=== PATIENT | female | born 1955 | race Caucasian/White ===

== ENCOUNTER → 2017-05-30 | Outpatient (CLI) | payer BC ==
--- NOTE | 2017-06-02 10:03 | Diagnostic Imaging Report ---
EXAMINATION: Bilateral screening mammogram with a Computer Aided Detection (CAD) system. INDICATION: Screening. PERSONAL HISTORY: No current complaints stated on the questionnaire. COMPARISON: 03/16/2015. FINDINGS: The breasts are composed of heterogeneously dense parenchyma which may decrease mammographic sensitivity. Benign-appearing calcifications are seen. Allowing for technique and positional differences, no suspicious change is seen. IMPRESSION: Dense breasts with no definite change. ACR BI-RADS Category 2: Benign findings. Result letter will be mailed to the patient. Note: At least 10% of breast cancer is not imaged by mammography. Dictated by: Dictated on workstation # [id number]
== END ==
LOC: RAD 13:15
PROVIDERS: ATTEND Obstetrics & Gynecology
DX: Z12.31 Encounter for screening mammogram for malignant neoplasm of breast (principal)
CPT/HCPCS: 77067

== ENCOUNTER 2019-06-11 22:58 | Emergency (ER) | payer MEDICARE, BC ==
[~2019-06-11] VITALS: Ht 162.6 cm; Wt 45.4 kg
--- OUTSIDE RECORDS SUMMARY | 2019-06-11 23:03 | XMS REPORT | Encounter Summary ---
Author Author [facility] Organization [facility] Address Unknown Phone Unavailable Care Team Providers Care Yeast Stacker Name Role Phone Crystal Ellington MD PCP Reason for Visit * Reason Comments Hospice follow up Encounter Details Care Team Description Date Type Department Ziggy Brennan MD [address] [place] [address] Hospice (follow up) 12/23/2018 Telephone [facility] [address] [place] [address] Social History Date Tobacco Use Types Packs/Day Years Used Started: 04/08/1988 Current Every Day Smoker Smokeless Tobacco: Never Used Drinks/Week oz/Week Comments Alcohol Use No Sex Assigned at Date Recorded Not on file Industry Job Start Date Occupation Not on file Not on file Not on file Travel End Travel History Travel Start No recent travel history available. documented as of this encounter Miscellaneous Notes * Telephone Encounter - Anastasia Johns RN - 12/23/2018 2:08 PM RAHUL Madden called, she has [facility] in [facility] home for her AND her . Wanted to make sure it was ok that she didn't come to clinic because she is so far away and it is difficult to get a ride. I advised that they can call any shayy e to ask questions or anything they need, will continue to sign her or ders. She stated understanding and will let them know. She also called to cancel her appt for Thursday 12/28. PRICKER documented in this encounter Plan of Treatment Not on filedocumented as of this encounter Visit Diagnoses Not on filedocumented in this encounter
--- OUTSIDE RECORDS SUMMARY | 2019-06-11 23:03 | XMS REPORT | Continuity of Care Document ---
Author Organization Unknown Address Unknown Allergies Active Description Code Type Severity Reaction Onset Reported/Identified Relationship to Patient Clinical Status Yes NO KNOWN DRUG ALLERGIES UNKNOWN NO KNOWN DRUG ALLERG Medications There is no data. Problems Date Dx Coded Attending Type Code Diagnosis Diagnosed By 04/21/2015 VINCE HEIN DO Ot 305.1 04/21/2015 VINCE HEIN DO Ot 627.2 04/21/2015 JENNIFER HEIN DOA C Ot 733.00 04/21/2015 MELVINA NAYLOR VINCE C Ot 793.82 04/21/2015 MELVINA NAYLOR VINCE C Ot V70.0 04/21/2015 MELVINA NAYLOR VINCE C Ot V76.12 06/13/2017 MELVINA NAYLOR VINCE C Ot Z12.31 ENCNTR SCREEN MAMMOGRAM FOR MALIGNANT NE 01/07/2018 KOKO MCINTYRE A 724.4 THORACIC OR LUMBOSACRAL NEURITIS OR RADICULITIS, UNSPECIFIED 01/07/2018 KOKO MCINTYRE W 736.79 OTHER ACQUIRED DEFORMITIES OF ANKLE AND FOOT 01/07/2018 KOKO MCINTYRE M21.372 FOOT DROP, LEFT FOOT 01/07/2018 KOKO MCINTYRE A M54.16 RADICULOPATHY, LUMBAR REGION 01/07/2018 KOKO MCINTYRE A 724.4 THORACIC OR LUMBOSACRAL NEURITIS OR RADICULITIS, UNSPECIFIED 01/07/2018 KOKO MCINTYRE W 736.79 OTHER ACQUIRED DEFORMITIES OF ANKLE AND FOOT 01/07/2018 KOKO MCINTYRE M21.372 FOOT DROP, LEFT FOOT 01/07/2018 KOKO MCINTYRE A M54.16 RADICULOPATHY, LUMBAR REGION 01/16/2018 Ot V76.12 OT SCREEN MAMMO- MALIGN NEOPLASM OF MICHAEL 01/16/2018 VINCE HEIN DO Ot 305.1 TOBACCO USE DISORDER 01/16/2018 HEIN DO, VINCE C Ot 627.2 SYMPT MENOPAUSE OR FEMALE CLIMACTERIC ST 01/16/2018 HEIN DO, VINCE C Ot 733.00 OSTEOPOROSIS NOS 01/16/2018 HEIN DO, VINCE C Ot 793.82 INCONCLUSIVE MAMMOGRAM 01/16/2018 HEIN DO, VINCE C Ot V70.0 ROUTINE MEDICAL EXAM 01/16/2018 HEIN DO, VINCE C Ot V76.12 OTH SCREEN MAMMO-MALIGN NEOPLASM OF MICHAEL 01/16/2018 HEIN DO, VINCE C Ot Z12.31 ENCNTR SCREEN MAMMOGRAM FOR MALIGNANT NE 01/19/2018 Ot V76.12 OTH SCREEN MAMMO- MALIGN NEOPLASM OF MICHAEL 01/19/2018 HEIN DO, VINCE C Ot 305.1 TOBACCO USE DISORDER 01/19/2018 HEIN DO, VINCE C Ot 627.2 SYMPT MENOPAUSE OR FEMALE CLIMACTERIC ST 01/19/2018 HEIN DO, VINCE C Ot 733.00 OSTEOPOROSIS NOS 01/19/2018 HEIN DO, VINCE C Ot 793.82 INCONCLUSIVE MAMMOGRAM 01/19/2018 HEIN DO, VINCE C Ot V70.0 ROUTINE MEDICAL EXAM 01/19/2018 HEIN DO, VINCE C Ot V76.12 OTH SCREEN MAMMO-MALIGN NEOPLASM OF MICHAEL 01/19/2018 HEIN DO, VINCE C Ot Z12.31 ENCNTR SCREEN MAMMOGRAM FOR MALIGNANT NE 01/30/2018 Ot V76.12 OTH SCREEN MAMMO- MALIGN NEOPLASM OF MICHAEL 01/30/2018 HEIN DO, VINCE C Ot 305.1 TOBACCO USE DISORDER 01/30/2018 HEIN DO, VINCE C Ot 627.2 SYMPT MENOPAUSE OR FEMALE CLIMACTERIC ST 01/30/2018 HEIN DO, VINCE C Ot 733.00 OSTEOPOROSIS NOS 01/30/2018 HEIN DO, VINCE C Ot 793.82 INCONCLUSIVE MAMMOGRAM 01/30/2018 HEIN DO, VINCE C Ot V70.0 ROUTINE MEDICAL EXAM 01/30/2018 HEIN DO, VINCE C Ot V76.12 OTH SCREEN MAMMO-MALIGN NEOPLASM OF MICHAEL 01/30/2018 HEIN DO, VINCE C Ot Z12.31 ENCNTR SCREEN MAMMOGRAM FOR MALIGNANT NE 06/14/2018 KOKO MCINTYRE 335.20 AMYOTROPHIC LATERAL SCLEROSIS 06/14/2018 KOKO MCINTYRE 728.87 MUSCLE WEAKNESS (GENERALIZED) 06/14/2018 KOKO MCINTYRE G12.21 AMYOTROPHIC LATERAL SCLEROSIS 06/14/2018 KOKO MCINTYRE M62.81 MUSCLE WEAKNESS (GENERALIZED) 06/19/2018 KOKO MCINTYRE 335.20 AMYOTROPHIC LATERAL SCLEROSIS 06/19/2018 KOKO MCINTYRE G12.21 AMYOTROPHIC LATERAL SCLEROSIS 06/24/2018 KOKO MCINTYRE 335.20 AMYOTROPHIC LATERAL SCLEROSIS 06/24/2018 KOKO MCINTYRE G12.21 AMYOTROPHIC LATERAL SCLEROSIS 08/10/2018 KOKO MCINTYRE 335.20 AMYOTROPHIC LATERAL SCLEROSIS 08/10/2018 KOKO MCINTYRE G12.21 AMYOTROPHIC LATERAL SCLEROSIS Procedures There is no data. Results Test Result Range Lipid Panel - 03/21/17 10:41 C/HDL 3.8 3.7-6.7 Cholesterol 259 mg/dL 100-240 HDL 69 mg/dL 30-85 LDL-Calculated 167 mg/dL 0-100 Trig 113 mg/dL 35-160 VLDL 23 mg/dL 0-42 Creatinine - 01/19/18 13:17 Creat 0.70 mg/dL 0.50-1.50 eGFR 84 mL/min/1.73m2 >59 Protein Electro.,S - 03/12/18 13:33 Protein, Total, Serum 6.2 g/dL 6.0-8.5 Albumin 3.6 g/dL 2.9-4.4 Wphtg-8-Qauzzuil 0.2 g/dL 0.0-0.4 Qauvd-0-Xiextkel 0.7 g/dL 0.4-1.0 Beta Globulin 0.9 g/dL 0.7-1.3 Gamma Globulin 0.8 g/dL 0.4-1.8 M-Gerard Not Observed g/dL Not Observed Globulin, Total 2.6 g/dL 2.2-3.9 A/G Ratio 1.4 0.7-1.7 Please note: Comment Protein Electro, Random Urine - 03/12/18 13:33 Protein,Total,Urine 24.6 mg/dL Not Estab. Please note: Comment Albumin, U 41.2 % Mwthp-7-Kaykamxm, U 6.8 % Jnduz-2-Rlmuaeal, U 13.0 % Beta Globulin, U 23.3 % Gamma Globulin, U 15.7 % M-Gerard, % Not Observed % Not Observed RPR - 03/12/18 13:33 RPR Non Reactive Non Reactive T4 - 03/12/18 13:33 T4 7.8 ug/dL 4.5-12.5 VIT B-12 - 03/12/18 13:33 Vitamin B12 377.00 pg/mL 213.00-816.00 LEANNA w/Reflex - 03/12/18 13:33 LEANNA DIRECT Negative Negative Rapid Plasma Reagin (RPR), Qualitative Test - 03/12/18 13:33 RPR Non Reactive Non Reactive Protein Electro, Random Urine - 03/12/18 13:33 PROTEIN,TOTAL,URINE 24.6 mg/dL Not Estab. ALBUMIN, U 41.2 % WGGLT-5-IDLZBAJF, U 6.8 % HFPOX-7-IRROKVXF, U 13.0 % BETA GLOBULIN, U 23.3 % GAMMA GLOBULIN, U 15.7 % PLEASE NOTE: Protein electrophoresis scan will follow via computer, mail, or.brcourier delivery. M-SPIKE, % Not Observed % Not Observed LEANNA w/Reflex - 03/12/18 13:33 LEANNA Direct Negative Negative Heavy Metals Profile II, Urine - 03/16/18 10:33 ARSENIC (TOTAL),U NONE DETECTED UG/L 0-50 ARSENIC(INORGANIC),U NONE DETECTED UG/L 0-19 CREATININE(PARTITION ASSEMBLY MACHINE OPERATOR),U 0.36 G/L 0.30-3.00 LEAD, URINE NONE DETECTED UG/L 0-49 MERCURY, URINE NONE DETECTED UG/L 0-19 CADMIUM, URINE NONE DETECTED UG/L NONE DETECTED Heavy Metals Profile II, Urine - 03/16/18 10:33 Creatinine(Physical Therapy Aides Teacher),U 0.36 g/L 0.30-3.00 Arsenic (Total),U None Detected ug/L 0-50 Arsenic(Inorganic),U None Detected ug/L 0-19 Lead, Urine None Detected ug/L 0-49 Mercury, Urine None Detected ug/L 0-19 Cadmium, Urine None Detected ug/L None detected Encounters ACCT No. Visit Date/Time Discharge Status Pt. Type Provider Facility Loc./Unit Complaint [id number] 05/30/2017 13:15:00 05/30/2017 23:59:59 CLS Outpatient VINCE HEIN DO Via [facility] SCREENING [id number] 03/16/2015 09:22:00 03/16/2015 23:59:59 CLS Outpatient MELVINA NAYLOR VINCE Westley [facility] RAD SCREENING, MENOPAUSE, TOBACCO USE [id number] 02/08/2013 13:56:00 Document Registration [id number] 03/13/2018 16:29:00 Document Registration [id number] 06/15/2018 13:40:00 08/10/2018 14:45:00 DIS Outpatient KOKO MCINTYRE [id number] 06/05/2018 00:00:00 06/14/2018 12:43:00 DIS Outpatient KOKO MCINTYRE [id number] 03/16/2018 10:29:00 03/16/2018 23:59:00 DIS Outpatient CARLOS ARMSTRONG [id number] 03/12/2018 13:26:00 03/12/2018 23:59:00 DIS Outpatient KOKO MCINTYRE [id number] 01/21/2018 00:00:00 01/21/2018 23:59:00 DIS Outpatient CAROLA CHIRINOS [id number] 01/19/2018 13:12:00 01/19/2018 23:59:00 DIS Outpatient CAROLA CHIRINOS [id number] 01/07/2018 00:00:00 01/07/2018 23:59:00 DIS Outpatient KOKO MCINTYRE [id number] 03/21/2017 14:03:00 03/21/2017 23:59:00 DIS Outpatient Mira Canas [id number] 03/18/2018 16:29:00 Document Registration [id number] 03/17/2015 04:27:03 ACT Document Registration [id number] 11/26/2017 16:45:00 11/26/2017 23:59:59 CLS Outpatient LONDON SARAH MIRELA [facility] [id number] 03/13/2018 12:21:00 Document Registration
--- OUTSIDE RECORDS SUMMARY | 2019-06-11 23:03 | XMS REPORT ---
Author Author ALISA LUNDBERG [facility] Address [address] [place] [address] Care Team Providers Care Lab Assistant Name Role Phone ALISA LUNDBERG Unavailable PROBLEMS Unknown Problems ALLERGIES No Known Allergies SOCIAL HISTORY Never Assessed PLAN OF CARE VITAL SIGNS Height 64.5 in 2017-02-19 Weight 111.6 lbs 2017-02-19 Temperature 98.0 degrees Fahrenheit 2017-02-19 Heart Rate 72 bpm 2017-02-19 Respiratory Rate 18 2017-02-19 BMI 18.86 kg/m2 2017-02-19 Blood pressure systolic 110 mmHg 2017-02-19 Blood pressure diastolic 66 mmHg 2017-02-19 MEDICATIONS Medication Instructions Dosage Frequency Start Date End Date Duration Status Ambien 5 MG Orally Once a day 1 tablet at bedtime 24h Active Gentamicin Sulfate 0.3 % Ophthalmic every 4 hrs 1 drop into affected eye 4h Jan, 07 days Active RESULTS No Results PROCEDURES No Known procedures IMMUNIZATIONS No Known Immunizations MEDICAL (GENERAL) HISTORY Type Description Date Medical History osteoporosis Surgical History hysterectomy Surgical History EGD Surgical History tonsillectomy Hospitalization History surgeries
--- OUTSIDE RECORDS SUMMARY | 2019-06-11 23:03 | XMS REPORT | Clinical Summary ---
Author Author [facility] Organization [facility] Address Unknown Phone Unavailable Care Team Providers Care Director Health Name Role Phone Crystal Ellington MD PCP Source Comments Some departments are not documenting in the electronic medical record. If you d o not see the information that you expected, contact Release of Information in [facility] [place] Information Management department at [phone] for further assistan ce in locating additional records.[facility] Allergies No Known Allergies Medications End Date Status Medication Sig Dispensed Refills Start Date Active zolpidem (AMBIEN) 5 mg Take 1 tablet 0 tablet by mouth at bedtime daily. Active Vitamin A 25,000 unit Take 1 90 capsule 6 capIndications: ALS capsule by 8 (amyotrophic lateral mouth daily. sclerosis) ([facility]) Active ascorbic acid(+) (VITAMIN Take 1 tablet 90 tablet 6 C) 1,000 mg by mouth 8 tabletIndications: ALS three times (amyotrophic lateral daily. sclerosis) ([facility]) Active vitamin E 400 unit Take 1 30 capsule 6 capsuleIndications: ALS capsule by 8 (amyotrophic lateral mouth daily. sclerosis) ([facility]) Active walker medical supply Use as 1 Device 0 directed. 8 PLEASE PROVIDE ROLLATOR WALKER DX ALS Active edaravone (RADICAVA) IVPB Administer 2000 mL 11 200 mL 8 through vein daily. Active riluzole(+) (RILUTEK) 50 Take one 180 tablet 3 mg tabletIndications: tablet by 8 amyotrophic lateral mouth twice sclerosis daily before meals. Active Problems Problem Noted Date ALS, limb onset Aug 2017, diagnosed March 2018 (amyotrophic lateral 04/08/2018 sclerosis) Family History Medical History Relation Name Comments Heart problem Father Cancer Mother Stroke Mother Migraines Sister Relation Name Status Comments Father Mother breast Sister Social History Date Tobacco Use Types Packs/Day Years Used Started: 04/08/1988 Current Every Day Smoker Smokeless Tobacco: Never Used Drinks/Week oz/Week Comments Alcohol Use No Sex Assigned at Date Recorded Not on file Industry Job Start Date Occupation Not on file Not on file Not on file Travel End Travel History Travel Start No recent travel history available. Last Filed Vital Signs Reading Time Taken Comments Vital Sign 139/80 08/31/2018 8:45 AM CDT Blood Pressure 81 08/31/2018 8:45 AM CDT Pulse - - Temperature 16 05/18/2018 8:15 AM CDT Respiratory Rate - - Oxygen Saturation - - Inhaled Oxygen Concentration 49 kg (108 lb) 08/31/2018 8:45 AM CDT Weight 163.8 cm (5' 4.5") 08/31/2018 8:45 AM CDT Height 18.25 08/31/2018 8:45 AM CDT Body Mass Index Plan of Treatment Health Maintenance Due Date Last Done Comments HEPATITIS C SCREENING 1954 PHYSICAL (COMPREHENSIVE) 1961 EXAM HIV SCREENING 1969 DTAP/TDAP VACCINES (1 - 1972 Tdap) CERVICAL CANCER SCREENING 1984 BREAST CANCER SCREENING 1994 COLORECTAL CANCER 2004 SCREENING SHINGLES RECOMBINANT 2004 VACCINE (1 of 2) INFLUENZA VACCINE 08/31/2019 08/27/2012, 07/26/2011, 10/07/2008, Additional history exists Results Not on filefrom Last 3 Months Insurance Type Payer Benefit Subscriber ID Effective Phone Address Plan / Dates Group PPO BCBS [facility] xxxxxxxxxxxx [id number] PREF CARE resent BLUE Advance Directives Patient Receiving Dock Checker Explanation Type Date Recorded Advance Directive/DPOA
--- OUTSIDE RECORDS SUMMARY | 2019-06-11 23:03 | XMS REPORT | Encounter Summary ---
Author Author [facility] Organization [facility] Address Unknown Phone Unavailable Care Team Providers Care Hand Flatwork Finisher Name Role Phone Crystal Ellington MD PCP Reason for Visit * Reason Comments Medication Question Vit A/C/E Encounter Details Care Team Description Date Type Department Ziggy Brennan MD [address] [place] [address] Medication Question (Vit A/C/E) 01/20/2019 Telephone [facility] [address] [place] [address] Social History Date Tobacco Use [...] Telephone Encounter - Anastasia Johns RN - 01/20/2019 9:16 AM NETWORK CONTRACTOR Robb maier, hospice nurse Liana Lilly- megavitamin doses, a and e,c. Should she continue taking these or not? [phone] I called [facility] back and advised that we recommend she take the Amara mins A/C/E but ultimately it is up to the patient. ORK CONTRACTOR documented in this encounter Plan of Treatment Not on filedocumented as of this encounter Visit Diagnoses Not on filedocumented in this encounter
--- OUTSIDE RECORDS SUMMARY | 2019-06-11 23:03 | XMS REPORT ---
Author Author ALISA LUNDBERG Organization [facility] Address [address] [place] [address] Care Team Providers Care Lieutenant Shift Supervisor Name Role Phone ALISA LUNDBERG Unavailable PROBLEMS Unknown Problems ALLERGIES No Known Allergies ENCOUNTERS Encounter Location Date Diagnosis [facility] [address] [place] [id number] Oct, Other viral agents as the cause of diseases classified elsewhere B97.89 and Acute upper respiratory infection, unspecified J06.9 [facility] [address] [address] Jan, Acute bacterial conjunctivitis of right eye H10.31 [facility] [address] [address] March, Other acute sinusitis J01.80 IMMUNIZATIONS No Known Immunizations SOCIAL HISTORY Never Assessed REASON FOR VISIT cough/congestion Pt states she started with a cough and congestion on and it just continues to get worse. She reports she has coughed so much her ribs are sore. TIAGO Yost PLAN OF CARE VITAL SIGNS Height 64.5 in 2017-11-26 Weight 106.8 lbs 2017-11-26 Temperature 99.7 degrees Fahrenheit 2017-11-26 Heart Rate 100 bpm 2017-11-26 Respiratory Rate 22 2017-11-26 BMI 18.05 kg/m2 2017-11-26 Blood pressure systolic 118 mmHg 2017-11-26 Blood pressure diastolic 66 mmHg 2017-11-26 MEDICATIONS Medication Instructions Dosage Frequency Start Date End Date Duration Status Fosamax 70 MG 1 tablet Not-Taking Mucinex 600 MG Orally every 12 hrs 2 tablet as needed 12h Not-Taking Osphena 60 MG Orally Once a day 1 tablet with food 24h Not-Taking Gentamicin Sulfate 0.3 % Ophthalmic every 4 hrs 1 drop into affected eye 4h Jan, 07 days Not-Taking Promethazine-Codeine 6.25-10 MG/5ML Orally every 6 hrs 5 ml as needed 6h Oct, Active PredniSONE 20 MG Orally Once a day 1 tablet 24h Oct, Dec, 30 day(s) Active Doxycycline Hyclate 100 MG Orally every 12 hrs 1 capsule 12h Active Ambien 5 MG Orally Once a day 1 tablet at bedtime 24h Not-Taking RESULTS No Results PROCEDURES No Known procedures INSTRUCTIONS MEDICATIONS ADMINISTERED No Known Medications MEDICAL (GENERAL) HISTORY Type Description Date Medical History osteoporosis Surgical History hysterectomy Surgical History EGD Surgical History tonsillectomy Hospitalization History surgeries
[2019-06-11] MEDS ORDERED: ZOLP5TAB7 (23:10)
[2019-06-11] MEDS ORDERED: RILU50TA (23:10)
--- NOTE | 2019-06-11 23:13 | ED Fall/Injury ---
General Stated Complaint: FALL Source: patient, family (daughter) Exam Limitations: no limitations History of Present Illness Date Seen by Provider: Jun 11, 2019 Time Seen by Provider: 22:57 Initial Comments The patient presents to the ER by private conveyance with her daughter and chief complaint that about 2 hours prior to arrival she was using her walker in the bathroom to brush her teeth and her daughter was standing behind her. As they were walking back to the red room she said her legs buckled underneath her and she fell down landing on her right knee and having some swelling and pain in her left foot. She did take 800 mg of ibuprofen about an hour ago. She says long she lay still the pain is not bad. She does have decreased sensation and movement in her lower extremity secondary to ALS for which she is on hospice. She is known to Dr. Crystal Frank, Dr. Brennan at [facility]. She denies striking her head nor loss of consciousness. She denies nausea sweats fevers chills dysuria cough shortness of breath. Her last fall was about a month ago similar her left leg locked up and she felt her knees. No injury that time. No previous injury to her right knee her left foot Allergies and Home Medications Allergies Coded Allergies: No Known Drug Allergies (Unverified , 06/11/19) Patient Home Medication List Home Medication List Reviewed: Yes Review of Systems Review of Systems Constitutional: No chills, No diaphoresis Eyes: Denies Blindness, Denies Blurred Vision Ears, Nose, Mouth, Throat: denies ear pain, denies ear discharge Cardiovascular: No edema, No Hx of Intervention Gastrointestinal: No abdominal pain, No constipation Genitourinary: No discharge, No dysuria Past Pxkhwpz-Uxpfjx-Ohzpqo Hx Patient Social History Alcohol Use: Past History (last used 30 years ago) Recreational Drug Use: No Drug of Choice: Hx MJ 30 years ago Smoking Status: Current Everyday Smoker Type Used: Cigarettes (1/2 ppd) Recent Foreign Travel: No Contact w/Someone Who Travel: No Physical Exam Vital Signs Vital Signs - First Documented 06/11/19 23:01 Temp 98.4 Pulse 121 Resp 18 B/P (MAP) 131/97 (108) Pulse Ox 92 O2 Delivery Nasal Cannula O2 Flow Rate 2.00 Capillary Refill : Height, Weight, BMI Height: '" Weight: lbs. oz. kg; BMI Method: General Appearance: WD/WN, no apparent distress HEENT: PERRL/EOMI, normal ENT inspection Cardiovascular: normal peripheral pulses, regular rate, rhythm, no edema Respiratory: no respiratory distress, no accessory muscle use Peripheral Pulses: 2+ Dorsalis Pedis (R), 2+ Left Dors-Pedis (L) Gastrointestinal: normal bowel sounds, non tender, soft Extremities: swelling (left foot with ecchymoses), other (and swelling just distal to the right knee in the proximal one third of the tibia/fibula. Mild erythema and warmth and tenderness to palpation.) Neurologic/Psychiatric: alert, normal mood/affect, oriented x 3, other (decreased sensation and motor weakness bilateral lower extremity symmetric, chronic) Skin: ecchymosis (left foot) Carla Coma Score Best Eye Response: (4) Open Spontaneously Best Verbal Response: (5) Oriented Best Motor Response: (6) Obeys Commands Carla Total: 15 Progress/Results/Core Measures Results/Orders My Orders Orders - BELLA EPPS Tibia/Fibula, Right, 2 Views (06/11/19 23:06) Knee, Right, 3 Views (06/11/19 23:06) Foot, Left, 3 Views (06/11/19 23:06) Vital Signs/I&O 06/11/19 23:01 Temp 98.4 Pulse 121 Resp 18 B/P (MAP) 131/97 (108) Pulse Ox 92 O2 Delivery Nasal Cannula O2 Flow Rate 2.00 Progress Progress Note : Time: 23:14 Progress Note The patient declines anything for pain at this time. She does not like oral opiate pills as they make her feel very poorly. X-ray of her right knee, right tib-fib, left foot. We discussed imaging for head, labs and urinalysis and she has declined at this time. Her daughter will be present for observation. Diagnostic Imaging Diagonstic Imaging: Xray Plain Films/CT/US/NM/MRI: knee (right knee and tibia-fibula) Comments Proximal comminuted closed fracture of the tibia as well as the neck of the fibula. No displacement or angulation. Reviewed: Reviewed by Me Diagonstic Imaging: Xray Plain Films/CT/US/NM/MRI: other (left foot) Comments Osteoporotic appearance of the bones. Possible mid shaft fracture of the fifth metatarsal Reviewed: Reviewed by Me Departure Impression Primary Impression: Fall Qualified Codes: W19.XXXA - Unspecified fall, initial encounter Additional Impressions: Tibia/fibula fracture Qualified Codes: S82.201A - Unspecified fracture of shaft of right tibia, initial encounter for closed fracture; S82.401A - Unspecified fracture of shaft of right fibula, initial encounter for closed fracture Foot fracture, left Qualified Codes: S92.902A - Unspecified fracture of left foot, initial encounter for closed fracture Disposition: HOME, SELF-CARE Condition: Stable Departure-Patient Inst. Decision time for Depature: 01:05 Referrals: VINCE HEIN DO (PCP) Primary Care Physician CRYSTAL HECTOR RACHEL L MD Patient Instructions: Foot Fracture (DC), Shinbone Fracture (DC) Add. Discharge Instructions: Ice as often as necessary for swelling or pain. Elevate your legs when possible. No weightbearing until surgeon releases you. You may take the splint off for bathing where the rest of the time. Keep your skin dry. Lotion is okay. Call the surgeon Dr. Hector on Friday and request an appointment to follow up this following week. Tramadol 1 tablet every 6 hours as needed for pain. Scripts Tramadol HCl (Tramadol HCl) 50 Mg Tablet 50 MG PO Q6H PRN for BREAKTHROUGH PAIN, #30 TAB 0 Refills Prov: BELLA EPPS 06/12/19 BELLA EPPS Jun 11, 2019 23:13
--- NOTE | 2019-06-12 00:35 | NUR ---
pt updated on approximate wait time for results. additional ice given to pt.
[2019-06-12] MEDS ORDERED: RX-TRAMADOL 50 MG (ULTRAM) TAB PPK#4 PO STA (01:15)
[2019-06-12] MEDS ORDERED: TRAM50TA2 PO (01:15)
[2019-06-12 01:25] VITALS: BP 131/84
--- NOTE | 2019-06-12 08:03 | Diagnostic Imaging Report ---
PATIENT HISTORY: Left foot pain, fall. TECHNIQUE: Three views of the left foot. COMPARISON: None. FINDINGS: There is diffuse osteopenia. There is mild deformity at the third and fourth metatarsal necks, and possibly the second metatarsal neck as well. Alignment otherwise appears normal and joint spaces are generally preserved. IMPRESSION: 1. Mild deformity at the third and fourth metatarsal necks, and possibly the second metatarsal neck, concerning for nondisplaced fractures. Please correlate with the site of pain. 2. Diffuse osteopenia. Dictated by: Dictated on workstation # [id number]
--- NOTE | 2019-06-12 08:05 | Diagnostic Imaging Report ---
PATIENT HISTORY: Fall, right knee pain. TECHNIQUE: Three views of the right knee. COMPARISON: None. FINDINGS: There is a linear lucency in the proximal right tibia concerning for a nondisplaced fracture. Alignment appears normal. No significant joint effusion is seen although the lateral view is in increased flexion. There is marked soft tissue edema at the anterior and medial aspect of the right lower leg. IMPRESSION: 1. Linear lucency in the proximal right tibia concerning for a nondisplaced fracture. No definite extension to the articular surface is seen. There is marked anterior and medial soft tissue edema. Dictated by: Dictated on workstation # [id number]
--- NOTE | 2019-06-12 08:07 | Diagnostic Imaging Report ---
PATIENT HISTORY: Fall, right leg pain. TECHNIQUE: 2 views of the right tibia/fibula COMPARISON: None FINDINGS: There is diffuse osteopenia. There is a nondisplaced oblique fracture of the proximal right tibial metadiaphysis. No definite extension to the articular surface is appreciated. There appears to be a nondisplaced fracture at the fibular neck as well. There is marked soft tissue edema about the right lower leg at the medial aspect. IMPRESSION: 1. Nondisplaced oblique fracture of the proximal right tibia without joint involvement seen. 2. Nondisplaced fracture of the right fibular neck. 3. Diffuse osteopenia. Dictated by: Dictated on workstation # [id number]
== END 2019-06-12 01:27 | disposition home or self-care (01) ==
LOC: EDUNIT# 22:58 → ER 22:59
DX: S82.191A Other fracture of upper end of right tibia, initial encounter for closed fracture (principal); S82.491A Other fracture of shaft of right fibula, initial encounter for closed fracture; F17.210 Nicotine dependence, cigarettes, uncomplicated; R40.2142 Coma scale, eyes open, spontaneous, at arrival to emergency department; R40.2252 Coma scale, best verbal response, oriented, at arrival to emergency department; R40.2362 Coma scale, best motor response, obeys commands, at arrival to emergency department; W01.0XXA Fall on same level from slipping, tripping and stumbling without subsequent striking against object, initial encounter; Y92.002 Bathroom of unspecified non-institutional (private) residence as the place of occurrence of the external cause
CPT/HCPCS: 29505; 73562; 73590; 73630